=== PATIENT | male | born 1985 | race Caucasian/White ===

== ENCOUNTER → 2020-08-02 | Outpatient (CLI) | payer OTHER ==
[~2020-08-02] MED LIST: BACTRIM DS TAB1 EACH PO; JANUVIA100 MG PO; METFORMIN HCL500 MG PO; NICOTINE PATCH1 EACH TOP; NORVASC10 MG PO; ZESTRIL10 MG PO
== END ==
LOC: LAB 21:07
DX: Z04.89 Encounter for examination and observation for other specified reasons (principal)
CPT/HCPCS: 36415